=== PATIENT | male | born 1970 | race Caucasian/White ===

== ENCOUNTER → 2024-07-19 | Outpatient (CLI) | payer OTHER ==
--- NOTE | 2024-07-19 08:13 | US ---
EXAMINATION TYPE: US liver DATE OF EXAM: 07/19/2024 COMPARISON: NONE CLINICAL INDICATION: Male, 54 years old with history of R94.5 ABNORMAL RESULTS OF LIVER FUNCTION STUD IES; elevated LFT's TECHNIQUE: Grayscale and color Doppler imaging of the right upper quadrant was performed. FINDINGS: EXAM MEASUREMENTS: Liver Length: 15.4 cm Gallbladder Wall: 0.2 cm CBD: 0.42 cm Right Kidney: 11.5 x 6.7 x 7.2 cm INSURANCE ADMINISTRATOR NOTES: Pancreas: Obscured by bowel gas Liver: heterogeneous. Limited due to body habitus Gallbladder: contracted with gallstones. Pt states he has been NPO for 10 hours Evidence for sonographic Garcia's sign: No CBD: wnl Right Kidney: cystic area in sup pole seen measuring 4.4 x 4.3 x 4.9cm Pancreas is obscured by overlying bowel gas. Heterogenous coarsened echotexture to the liver without surface nodularity or focal lesion identified. Contracted gallbladder with gallstones identified. No wall thickening. Negative sonographic Garcia sign. Common bile duct is within normal limits. Right ki dney demonstrate no hydronephrosis, solid mass, or shadowing calculus. There is a superior right shadia l pole simple anechoic cyst identified measuring up to 4.9 cm. IMPRESSION: 1. No ultrasound evidence for acute process. 2. Nonspecific heterogenous coarsened echotexture of the liver. No overt cirrhotic appearance. Findin g suggests hepatocellular disease which is most commonly seen with hepatic steatosis. 3. Cholelithiasis without ultrasound evidence for acute cholecystitis. 4. Simple right renal cyst. [facility], , 07/19/2024 8:11 AM
== END | disposition home or self-care (01) ==
LOC: RADUSWWP 06:48
PROVIDERS: ATTEND Family Medicine
DX: K80.20 Calculus of gallbladder without cholecystitis without obstruction (principal); N28.1 Cyst of kidney, acquired; R94.5 Abnormal results of liver function studies; K76.89 Other specified diseases of liver
CPT/HCPCS: 76705

== ENCOUNTER 2024-08-29 07:31 | Day surgery (SDC) | payer OTHER ==
[2024-08-27 14:46] VITALS: BMI 28.1
[~2024-08-29 07:31] MED LIST: LACTATED RINGERS 1,000 ML IV SCH
[2024-08-29] MEDS: IV FLUID CONTINUATION 1,000 ML IV ONE (07:56)
[2024-08-29 08:25] VITALS: TEMP 97.8
[2024-08-29] MEDS ORDERED: LIDOCAINE 2% (PF) 20 MG/ML 5 ML VIAL ONE (08:56)
[2024-08-29] MEDS ORDERED: PROPOFOL 10 MG/ML 20 ML VIAL IV ONE (08:56)
--- NOTE | 2024-08-29 09:20 | P.PCN ---
Date of Procedure: 08/29/24 Procedure(s) Performed: Brief history: Patient is a pleasant 54-year-old white male scheduled for an elective upper endoscopy as well as colonoscopy as a part of evaluation of GERD and screening for colon cancer Procedure performed: Esophagogastroduodenoscopy with biopsy Colonoscopy with snare polypectomy. Preoperative diagnosis: GERD Screening for colon cancer Anesthesia: MAC Procedure: After informed consent was obtained from the patient was brought into the endoscopy unit and IV sedation was administered by anesthesia under continuous monitoring. Initially upper endoscopy was done. The Olympus GF 160 video endoscope was inserted inserted into the mouth and esophagus intubated without any difficulty and was gradually advanced into the stomach and duodenum and carefully examined. The bulb and second part of the duodenum appeared normal. The scope was then withdrawn into the stomach adequately insufflated with air and upon careful examination the antrum and mild gastritis and biopsies were done from this area. Mucosa of the d body, cardia and fundus appeared normal. The scope was then withdrawn into the esophagus. No hiatal hernia noted. The GE junction was located at 40 cm to the incisors. It appeared regular with 2 superficial erosions consistent with LA grade B reflux esophagitis. Rest of the esophagus appeared normal and the patient tolerated the procedure well. At this time the patient continued to remain sedation. Initial digital rectal examination was normal. Olympus CF 160 video colonoscope was then inserted into the rectum and gradually advanced to the cecum without any difficulty. Careful examination was performed as the scope was gradually being withdrawn. The prep was excellent. The cecum, had a 5 mm polyp that removed by cold snare polypectomy. Rest of ascending colon, normal. In the transverse colon there was a 6 mm polyp removed by cold snare polypectomy. Rest of transverse colon, descending colon, sigmoid colon and rectum appeared normal. Retroflexion was performed in the rectum and no lesions were noted. Patient tolerated the p rocedure well. Impression: 1. Upper endoscopy revealed small hiatal hernia, superficial erosions in the distal esophagus consistent with LA grade B reflux esophagitis and mild antral gastritis 2. Colonoscopy revealed 5 mm cecal polyp and a 6 mm transverse colon polyp status post cold snare polypectomy Recommendations: Findings of this examination were discussed with the patient as well as family. He was advised to follow-up with the biopsy results. Start on omeprazole 20 mg daily and follow antireflux measures. If the biopsy reveals adenoma he can have repeat colonoscopy in 5 years.
[2024-08-29 09:43] VITALS: BP 130/99; PULSE 62; RESP 16
== END 2024-08-29 09:55 | disposition home or self-care (01) ==
LOC: ORWHC2ENDO 07:31
PROVIDERS: ATTEND Internal Medicine Gastroenterology
DX: Z12.11 Encounter for screening for malignant neoplasm of colon (principal); D12.0 Benign neoplasm of cecum; K21.9 Gastro-esophageal reflux disease without esophagitis; K29.50 Unspecified chronic gastritis without bleeding; K44.9 Diaphragmatic hernia without obstruction or gangrene; I10 Essential (primary) hypertension; F17.210 Nicotine dependence, cigarettes, uncomplicated; Z79.899 Other long term (current) drug therapy; Z88.0 Allergy status to penicillin
CPT/HCPCS: 88305; 45385; 43239; J2704; J2003